=== PATIENT | female | born 1975 | race Caucasian/White ===

== ENCOUNTER 2023-11-15 14:49 | Observation (INO) | payer BC, SELFPAY ==
[2023-11-15 09:25] VITALS: BP 141/95
[2023-11-15 10:38] VITALS: BMI 23.6
--- NOTE | 2023-11-15 10:43 | ED.GENMED ---
History of Present Illness
General
Chief Complaint: Headache
Source: patient and family
Exam Limitations: none
Time Seen by Provider: 11/15/23 10:25
Travel History
Have you had any contact with someone who has COVID-19?: No
Do you have any symptoms of coronavirus? Fever > 100 degrees, chills, cough, shortness of breath, sore throat, loss of taste or smell, muscle aches, or headache?: No
History of Present Illness
History of Present Illness:
47-year-old female photophobia nausea vomiting headache. Retrobulbar. History of cluster headaches. This feels exactly the same. Last episode was 3 years ago. She has had a full workup in the past. No acute neurologic symptoms.
Past History
Past History
ED Past Medical History: Hypercholesterolemia and Other (Migraine)
ED Past Surgical History: Appendectomy
Social History
Tobacco: Smoker
Alcohol: None
Personal:
Living: with family
Family History
Family History: Other (father at 48 with heart attack and mother had heart attack at 52)
Review of Systems
Review of Systems
All Other Systems: Not applicable
Constitutional: Denies fever
Neurological: Denies dizzy, weakness or numbness
Phy Exam
Physical Exam
Physical Exam:
GENERAL: Alert and oriented in no apparent distress
EYE: Orbits normal. Discharge nontender
NECK: Supple, nontender
CARDIAC: Regular rate and rhythm without any obvious murmurs.
LUNGS: Clear breath sounds,normal
ABDOMEN: Soft, without focal tenderness or distention
NEUROLOGICAL: Alert and oriented , speech normal. Cranial nerves II through XII intact.
SKIN: Warm and dry, no rash or lesion, no discoloration, skin intact.
MUSCULOSKELETAL: No edema,no deformity.Good color
PSYCH: Normal and appropriate interaction.
Course
Orders/Labs/Results
Orders:
Orders
11/15/23 10:37
IV Insert/Care/Rem.- Treatment PRN
0.9% Sodium Chloride 1000 ml [Nss] 1,000 ml IV BOLUS
Dexamethasone Sod Phosphate [Decadron] 6 mg IV NOW STA
Diphenhydramine [Benadryl] 25 mg IV NOW STA
Ketorolac [Toradol] 15 mg IV NOW STA
Metoclopramide [Reglan] 10 mg IV NOW STA
11/15/23 10:48
Basic Metabolic Panel Urgent
Complete Blood Count/With Diff Urgent
HCG, Serum Qualitative Screen Urgent
Comment: ADD ON
11/15/23 11:43
Add On- LAB Urgent
Tests Added?: qual bhcg
11/15/23 11:57
Acetaminophen 1000MG/100Ml [Ofirmev] 1,000 mg in 100 ml IV ONCE
Acetaminophen IV Indication:: ED Narcotic Naive Pt-ONCE
HYDROmorphone [Dilaudid] 0.5 mg IV NOW STA
11/15/23 11:58
CT Head W/o Iv Contrast Urgent
Comment:
Reason For Exam: Diffuse severe headache
11/15/23 13:19
HYDROmorphone [Dilaudid] 0.5 mg IV NOW STA
11/15/23 14:10
Admit/Transfer Patient As Directed
Co-Sign Provider:
Level of Care: Observation services
Assign to:: Medical/Surgical
Physician / Group: hosp
Diagnosis: Intractable cluster H/A
Reason for Hospitalization: Intractable cluster headache
11/15/23 14:16
Code Status As Directed
Resuscitation Status: Full Code
11/15/23 14:23
Sumatriptan Succinate [Imitrex] 6 mg SC NOW STA
11/15/23 14:26
Ketorolac [Toradol] 15 mg IV Q6HPRN PRN
11/15/23 Dinner
Clear Liquid
At Your Request: Full Participation
11/15/23 16:06
0.9% Sodium Chloride 1000 ml [Nss] 1,000 ml IV 80 mls/hr
Acetaminophen [Tylenol] 650 mg PO Q4HPRN PRN
Ibuprofen [Motrin] 400 mg PO Q6HPRN PRN
Ondansetron Injectable [Zofran] 4 mg IV Q6HPRN PRN
sumatriptan [Tosymra] 20 mg NASAL DAILYPRN PRN
11/15/23 16:06
NEUROLOGY CONSULT Routine
Consulting Provider: Samantha Woods
Was physician already notified: Yes
Activity As Directed
Activity Level: With Assistance
Neurological Checks As Directed
Frequency: Per unit guidelines
Vital Signs As Directed
Frequency: Per unit guidelines
O2 Therapy [RESP] Routine
Nasal Cannula Liter Flow: 2 LPM
High Flow Nasal Cannula Liter Flow: 12
Titrate/Wean O2 to maintain O2 sat greater than (%): 95
Special Instructions: -High liter flow 12 L over 15 minutes to see if helps headache
DX Deep Vein Thrombosis Video Routine
11/15/23 16:34
HYDROmorphone [Dilaudid] 0.5 mg IV Q4HPRN PRN
11/15/23 22:00
Atorvastatin [Lipitor] 20 mg PO HS
Abnormal Lab Results
11/15/23
10:48
MCH 33.6 H pg
(27.0-31.0)
RDW 11.4 L %
(11.5-14.5)
Absolute Neuts (auto) 6.8 H 10^3/uL
(1.4-6.5)
Neutrophils % 76.2 H %
(42.2-75.2)
Lymphocytes % 20.0 L %
(20.5-51.1)
11/15/23 10:48
11/15/23 10:48
Vital Signs
Initial and Last Documented VS:
Initial Vital Signs
Temp Pulse Resp BP Pulse Ox
98.4 F 96 18 141/95 100
11/15/23 09:25 11/15/23 09:25 11/15/23 09:25 11/15/23 09:25 11/15/23 09:25
Last Documented Vital Signs
Temp Pulse Resp BP Pulse Ox
97.9 F 83 16 111/77 97
11/17/23 07:00 11/17/23 07:00 11/17/23 07:00 11/17/23 07:00 11/17/23 07:00
MDM/Problems Addressed
Differential Diagnosis Includes:
Patient complaining of her classic cluster like headache. She had a full workups including multiple radiologic imaging in the past. She was admitted to [place] years ago for 5 days for the same. No indication for radiologic testing at this time
unless there is a change
*Radiology
Radiology exam reviewed: radiology read reviewed (Negative)
*Pulse Oximetry
Patient hypoxic: no
*Critical Care Note
Total Time (30-74mins, 75-104mins- exclusive of procedures): Not Applicable
Update Note
Update Note:
Patient states her headache is now improved. Will give more pain management and reluctantly give a small dose of Dilaudid. Feels she does need a head CT at this time although feel the yield on a positive head CT is low.
1317... Patient's headache remains unresolved. I do not feel at this time that further slowing her with pain medication would resolve the issue acutely. She will be admitted for further care. Neurologically stable negative head CT do not feel she
warrants further radiologic imaging as she has a history of these type of headaches has been worked up in the past and she is clinically stable
ED Attending Note
-
Portions of this chart may have been created with voice recognition software.� Occasional wrong word or��sound alike� substitutions may have occurred due to the inherent limitations of voice recognition software.
Discharge Plan
Departure
Patient Disposition: Admit
Date of Disposition: 11/15/23
Time of Disposition: 13:19
Presentation/result/management discussed w/ accepting MD/DO: Hospitalist
Discharge Problem:
Intractable headache, History of cluster headaches
Interventions
Interventions:
*Risk Screen - Suicide Last Done: 11/15/23 09:25
*General Assessment Last Done: 11/15/23 09:25
*Neglect/Abuse Screening Last Done: 11/15/23 09:25
ED- Fall Risk Assessment Last Done: 11/15/23 15:20
*ED COVID-19 Vaccine History Last Done: 11/15/23 09:25
*Nursing Disposition Last Done: 11/15/23 15:38
ED- Neurological Assessment Last Done: 11/15/23 10:40
Discharge Date and Time
Discharge Date/Time: 11/15/23 16:00
[2023-11-15] MEDS: NSS 1000 IV ×2 (10:51→16:40)
[2023-11-15] MEDS: TORADOL 15 MG IV (10:53)
[2023-11-15 10:55] LABS: % Basophils 0.4 % (0-2); % Eosinophils 0.3 % (0-6); % Immature Granulocytes 0.2 % (0-0.5); % Monocytes 2.9 % (1.7-9.3); % Neutrophils 76.2 % (42.2-75.2); Absolute Lymphocytes 1.8 10^3/uL (1.2-3.4); Absolute Monocytes 0.3 10^3/uL (0.1-0.6); Absolute Neutrophils 6.8 10^3/uL (1.4-6.5); Hematocrit 41.4 % (37.0-47.0); Hemoglobin 14.4 g/dL (12.0-16.0); Mean Corp Hgb Conc. 34.8 g/dL (33.0-37.0); Mean Corpuscular Hgb 33.6 pg (27.0-31.0); Mean Corpuscular Volume 96.7 fL (81.0-99.0); Mean Platelet Volume 9.5 fL (7.4-10.4); Nucleated Red Blood Cells % 0 %; Platelet Count 268 10^3/uL (130-400); Red Blood Cell Count 4.28 10^6/uL (4.20-5.40); Red Cell Dist. Width 11.4 % (11.5-14.5); White Blood Cell Count 8.9 10^3/uL (4.8-10.8)
[2023-11-15] MEDS: BENADRYL 25 MG IV ×2 (10:55→21:41)
[2023-11-15] MEDS: DECADRON 6 MG IV (10:57)
[2023-11-15] MEDS: REGLAN 10 MG IV ×2 (11:02→21:43)
[2023-11-15 11:11] LABS: Blood Urea Nitrogen 12 mg/dl (7-17); Calcium 9.2 mg/dl (8.4-10.2); Carbon Dioxide 28 mmol/L (22-30); Chloride 104 mmol/L (98-107); Estimated Creatinine Clearance 80 ml/min; Glucose 90 mg/dl (70-99); Potassium 4.4 mmol/L (3.5-5.1); Sodium 135 mmol/L (135-145); eGFR > 60.00
[2023-11-15 11:45] VITALS: BP 121/83
[2023-11-15] MEDS: DILAUDID 0.5 MG IV ×2 (12:21→13:46)
[2023-11-15] MEDS: OFIRMEV 100 IV (12:23)
[2023-11-15 12:25] LABS: HCG, Serum Qualitative Screen Negative
[2023-11-15 13:48] VITALS: BP 125/79
--- NOTE | 2023-11-15 14:27 | HPS.HSE ---
Family Physician
-
Family Physician: Baljinder Zeng, DO
Chief Complaint
-
Intractable headache very typical for her cluster with on the right side
History of Present Illness
47-year-old female with no prior significant medical history other than a known history of cluster headache last which was severe 3 years ago at that time was refractory at this facility but eventually treated at [facility] and required a
5-day course of stay with eventual relief she has been on as needed Imitrex nasal spray since then in the form of Tosymra last which was taken dose yesterday evening. Take it any more frequently than once a day because it knocks her out. She does
not smoke only medication she takes presently is atorvastatin in the last several days she has been taking frequent amounts of ibuprofen and acetaminophen. She received a headache cocktail of Reglan Benadryl Toradol and Decadron here in the ED
without effect and 2 separate dosages of Dilaudid since here without effect. She continues to have a persisting and intractable right-sided headache that is retrobulbar very typical to previous presentation she has had although she states her most
severe headache was 3 years ago she has them intermittently usually treated with NSAIDs with relief. She has not been placed on oxygen in the ED as she had
Medical History
Past Medical History
Past Medical History: Reports Hypercholesterolemia
Additional Past Medical History:
Prior cluster headache
Past Surgical History: Reports None
Social History
Tobacco: Non-smoker
Alcohol: Occasional
Drug: None
Personal:
Living: With Family
Family History
Family History: Not pertinent
Allergies / Home Medications
Allergies reflects when Allergies were last updated in [facility].
Home Medications with original date entered in [facility]
Allergy/Medication List:
Allergies
Allergy/AdvReac Type Severity Reaction Status Date / Time
No Known Allergies Allergy Verified 11/15/23 10:39
Home Medications
acetaminophen 325 mg tablet (Tylenol) 650 mg PO Q4HPRN PRN migraines 11/15/23
atorvastatin 20 mg tablet (Lipitor) 20 mg PO HS 11/15/23
ibuprofen 200 mg tablet (Advil) 400 mg PO Q6HPRN PRN migraines 11/15/23
sumatriptan 10 mg/actuation nasal spray (Tosymra) 20 mg intranasal DAILYPRN PRN migraines 11/15/23
Review of Systems
-
A 12 point ROS was completed and negative except as noted: Yes
Neurological: Reports Headache (Intractable around right eye typical presentation of previous cluster headaches always on right side no visual acuity change)
Psych: Reports No Symptoms
Physical Exam
Vital Signs
Vital Signs
Temp Pulse Resp BP Pulse Ox
98.4 F 98 18 125/79 95
11/15/23 09:25 11/15/23 13:48 11/15/23 13:48 11/15/23 13:48 11/15/23 13:48
Physical Exam
General: Well Developed
HEENT: NormoCephalic
Respiratory: Clear
Cardiac: S1/S2
GI: Soft
Skin: Warm
Neuro: Awake, Alert, Oriented, AO x 3, No Motor Deficits, Nonfocal/grossly intact and Cranial Nerves Intact
Psych: Calm
Laboratory Results
-
11/15/23 10:48
11/15/23 10:48
Data Reviewed
-
Critical Care Time (in minutes): 56
Lab Data: Labs Reviewed by me
Impression/Plan
-
IMPRESSION:
47-year-old female with no prior significant medical history other than a known history of cluster headache last which was severe 3 years ago at that time was refractory at this facility but eventually treated at [facility] and required a
5-day course of stay with eventual relief she has been on as needed Imitrex nasal spray since then in the form of Tosymra last which was taken dose yesterday evening. Take it any more frequently than once a day because it knocks her out. She does
not smoke only medication she takes presently is atorvastatin in the last several days she has been taking frequent amounts of ibuprofen and acetaminophen. She received a headache cocktail of Reglan Benadryl Toradol and Decadron here in the ED
without effect and 2 separate dosages of Dilaudid since here without effect. She continues to have a persisting and intractable right-sided headache that is retrobulbar very typical to previous presentation she has had although she states her most
severe headache was 3 years ago she has them intermittently usually treated with NSAIDs with relief. She has not been placed on oxygen in the ED
Intractable cluster headache by presentation and history
-No response to steroid, Toradol, diphenhydramine,
-Has had response to Imitrex form of nasal spray in the past last taken last evening
-Placing on high flow oxygen per neurology input 12 L/min over 15 minutes/subcu dose of Imitrex/Toradol IV
Neurology consultation will see if high flow oxygen ineffective
-Otherwise Dilaudid as needed
-IV fluids due to poor oral intake
24-hour
DVT prophylaxis with venous pumps
Full CODE STATUS
Spoke to spouse at bedside explained plan of care:
[2023-11-15 14:44] VITALS: BP 111/70
--- NOTE | 2023-11-15 14:46 | EDRN ---
per ER unit secretary, admitting hospitalist Dr Ortiz called and wants this patient to be placed on 12L of oxygen for 15 minutes.
[2023-11-15] MEDS: IMITREX 6 MG SC (15:06)
--- NOTE | 2023-11-15 16:09 | CON.NEURO ---
Consultation
Order
Date of Consultation: 11/15/23
Reason for Consult: headache
CC: headache
HPI: This is a 47-year-old right-handed woman who presented to [facility] on November 15, 2023 with 4 days of headache. According to the patient she developed gradual onset right-sided moderate to severe nonpositional headache with
associated nasal congestion, R ptosis, photophobia, phonophobia, nausea and emesis. She has been using sumatriptan in addition to ibuprofen and Tylenol for headache rescue with no improvement leading to her to seek medical attention. No reports of
head trauma, fever, visual, motor or sensory deficits, recently discontinued medications, excessive caffeine use. Patient does have IUD.
Roma states that her headache improved from 10 to 4/10 in severity after provided treatment in the ER that included dexamethasone 6 mg once, Benadryl 25, hydromorphone 25, ketorolac 15, mental loperamide 10 mg, sumatriptan 6 mg subQ once.
Ms. Odell has history of chronic refractory migraine without aura as well as cluster headache. She reportedly was hospitalized to [facility] with headache cluster several years ago.
She is on Botox for headache prophylaxis and sumatriptan and Tylenol for headache rescue.
ER: MAR: Dexamethasone 6 mg once, Benadryl 25, hydromorphone 25, ketorolac 15, mental loperamide 10 mg, sumatriptan 6 mg subQ once.
ER VS: 125/79, 96�106, afebrile.
PDMP: No recently prescribed medications
Labs: Normal WBCs, sodium, creatinine, glucose,
CT head�unremarkable.
PMH: Refractory migraine without aura, DLP,
PSH: Nasal polyp back appendectomy, abdominoplasty
SH: ; has 2 children; non-smoker, denies excessive alcohol use
FH: Father� in his 40s, had headaches, mother� from diabetic complications
All:NKDA
ROS:Constitutional: Negative. Negative for chills, fever and unexpected weight change.
HENT: Positive for nasal congestion
Eyes: Negative. Negative for photophobia, pain and visual disturbance.
Respiratory: Negative for cough, choking and shortness of breath.
Cardiovascular: Negative for chest pain, palpitations and leg swelling.
Gastrointestinal: Positive for nausea and emesis
Endocrine: Negative. Negative for cold intolerance.
Genitourinary: Negative for dysuria, flank pain and urgency.
Musculoskeletal: Negative for back pain, gait problem, neck pain and neck stiffness.
Skin: Negative for rash.
Allergic/Immunologic: Negative. Negative for immunocompromised state.
Neurological: Positive for headache
Psychiatric/Behavioral: Negative for behavioral problems, confusion and hallucinations.
General: Well developed. In no acute distress.
Cardio: Regular rate and rhythm without murmur. Extremities are without cyanosis or edema.
Neuro:
Mental Status: Alert, oriented to person, place, and date. Normal attention and recall. Good fund of knowledge. Follows complex requests across the midline. Comprehension, naming, and repetition intact. Immediate and delayed recall 3/3.
Cranial Nerves: . Pupils are equally round and reactive to light. EOMs full. Visual moore full to confrontation. No ptosis. No nystagmus. V1-V3 intact to light touch and pinprick bilaterally, symmetric. Face symmetric. Normal hearing AU.
The palate elevated well. SCMs and traps 5/5. Tongue midline. No dysarthria.
Motor: Normal bulk and tone. No pronator or arm drift. Strength 5/5 throughout. No clonus.
Reflexes: 2+ throughout the upper extremities and knees. Plantar responses flexor bilaterally.
Sensory: Normal vibration at the teos
Coordination: No dysmetria or tremor.
Gait: deferred
Assessment and Plan:
I. Trigeminal cephalgia
II. Chronic migraine without aura
III. MOH
-Please check magnesium, ESR, CRP, D-dimer
-Oxygen therapy 12 mL/h for 15 minutes. if not effective�proceed with oral topical lidocaine 40 mg intranasally ipsilaterally to the headache every hour do not exceed 200 mg/day
-IV Toradol 30 mg, Reglan 10 mg, Benadryl 25 mg Q8h PRN for moderate to severe headache.
-I Valproate 500 to 1000 mg over 5 to 10 minutes Q12h
-Continue IV fluids
-Further work up will depend on clinical course.
I personally reviewed all radiology and labs along with past medical records pertinent to current medical problems. Total time spent in patient care is 60 minutes.
Thank you for allowing us to participate in the care of this patient. We will continue to follow. Please do not hesitate to contact us with any questions or concerns.
Subjective/Objective
Subjective Data
Date of Service: November 15, 2023
Objective Data
Vital Signs
Temp Pulse Resp BP Pulse Ox
36.9 C 106 16 111/70 100
11/15/23 09:25 11/15/23 15:36 11/15/23 15:36 11/15/23 14:44 11/15/23 15:36
Lab Results
11/15/23 10:48
11/15/23 10:48
Sodium 135 mmol/L (135-145) 11/15/23 10:48
Potassium 4.4 mmol/L (3.5-5.1) 11/15/23 10:48
BUN 12 mg/dl (7-17) 11/15/23 10:48
Glucose 90 mg/dl (70-99) 11/15/23 10:48
Calcium 9.2 mg/dl (8.4-10.2) 11/15/23 10:48
Patient Allergies
No Known Allergies Allergy (Verified 11/15/23 10:39)
Medications
-
Active Medications
Generic Name Dose Route Start Last Admin
Trade Name Freq PRN Reason Stop Dose Admin
Acetaminophen 650 mg 11/15/23 16:06
Acetaminophen 325 Mg Tablet PO 12/13/23 16:05
Q4HPRN PRN
migraines
Atorvastatin Calcium 20 mg 11/15/23 22:00
Atorvastatin (Lipitor) 20 Mg Tablet PO 12/13/23 21:59
HS WENDY
Hydromorphone HCl 0.5 mg 11/15/23 16:06
Hydromorphone 0.5 Mg/0.5 Ml Syringe IV 11/29/23 16:05
Q4HPRN PRN
severe pain
Sodium Chloride 1,000 mls @ 80 mls/hr 11/15/23 16:06
Nss IV
[id number] WENDY
Ibuprofen 400 mg 11/15/23 16:06
Ibuprofen 200 Mg Tablet PO 12/13/23 16:05
Q6HPRN PRN
migraines
Ketorolac Tromethamine 15 mg 11/15/23 14:26
Ketorolac 15 Mg/Ml Injection IV 11/20/23 14:25
Q6HPRN PRN
PINZON
Non-Formulary Medication 20 mg 11/15/23 16:06
Sumatriptan [Tosymra] NASAL
DAILYPRN PRN
migraines
Ondansetron HCl 4 mg 11/15/23 16:06
Ondansetron 4 Mg/2 Ml Vial IV 12/13/23 16:05
Q6HPRN PRN
nausea and vomiting
Home Medications
Medication Instructions Recorded
acetaminophen 325 mg tablet 650 mg PO Q4HPRN PRN migraines 11/15/23
(Tylenol)
atorvastatin 20 mg tablet (Lipitor) 20 mg PO HS 11/15/23
ibuprofen 200 mg tablet (Advil) 400 mg PO Q6HPRN PRN migraines 11/15/23
sumatriptan 10 mg/actuation nasal 20 mg intranasal DAILYPRN PRN 11/15/23
spray (Tosymra) migraines
Vital Signs and Labs
-
Vital Signs and Labs:
Vital Signs
Temp Pulse Resp BP Pulse Ox
36.5 C 94 16 135/86 98
11/15/23 16:12 11/15/23 16:12 11/15/23 16:12 11/15/23 16:12 11/15/23 16:12
Lab Results
11/15/23 10:48
11/15/23 10:48
Sodium 135 mmol/L (135-145) 11/15/23 10:48
Potassium 4.4 mmol/L (3.5-5.1) 11/15/23 10:48
BUN 12 mg/dl (7-17) 11/15/23 10:48
Glucose 90 mg/dl (70-99) 11/15/23 10:48
Calcium 9.2 mg/dl (8.4-10.2) 11/15/23 10:48
Home Medications
-
Home Medications
acetaminophen 325 mg tablet (Tylenol) 650 mg PO Q4HPRN PRN migraines 11/15/23
atorvastatin 20 mg tablet (Lipitor) 20 mg PO HS 11/15/23
ibuprofen 200 mg tablet (Advil) 400 mg PO Q6HPRN PRN migraines 11/15/23
sumatriptan 10 mg/actuation nasal spray (Tosymra) 20 mg intranasal DAILYPRN PRN migraines 11/15/23
Medications
-
Medications:
Generic Name Dose Route Start Last Admin
Trade Name Freq PRN Reason Stop Dose Admin
Acetaminophen 650 mg 11/15/23 16:06
Acetaminophen 325 Mg Tablet PO 12/13/23 16:05
Q4HPRN PRN
migraines
Atorvastatin Calcium 20 mg 11/15/23 22:00
Atorvastatin (Lipitor) 20 Mg Tablet PO 12/13/23 21:59
HS WENDY
Hydromorphone HCl 0.5 mg 11/15/23 16:06
Hydromorphone 0.5 Mg/0.5 Ml Syringe IV 11/29/23 16:05
Q4HPRN PRN
severe pain
Sodium Chloride 1,000 mls @ 80 mls/hr 11/15/23 16:06
Nss IV
[id number] WENDY
Ibuprofen 400 mg 11/15/23 16:06
Ibuprofen 200 Mg Tablet PO 12/13/23 16:05
Q6HPRN PRN
migraines
Ketorolac Tromethamine 15 mg 11/15/23 14:26
Ketorolac 15 Mg/Ml Injection IV 11/20/23 14:25
Q6HPRN PRN
PINZON
Non-Formulary Medication 20 mg 11/15/23 16:06
Sumatriptan [Tosymra] NASAL
DAILYPRN PRN
migraines
Ondansetron HCl 4 mg 11/15/23 16:06
Ondansetron 4 Mg/2 Ml Vial IV 12/13/23 16:05
Q6HPRN PRN
nausea and vomiting
[2023-11-15 16:11] VITALS: BMI 23.3
[2023-11-15 16:12] VITALS: BP 135/86
[2023-11-15 17:31] LABS: Erythrocyte Sed Rate 8 mm/hour (0-20); Magnesium 2.1 mg/dl (1.6-2.3)
[2023-11-15 17:34] LABS: D-Dimer < 0.27 ug/mlFEU (0.00-0.50)
[2023-11-15 17:36] LABS: C-Reactive Protein < 5.00 mg/L (0.0-10.00)
[2023-11-15 18:08] LABS: TSH Reflex To Free T4 0.26 uIU/ml (0.47-4.68)
[2023-11-15 18:36] LABS: Free T4 1.05 ng/dl (0.78-2.19)
[2023-11-15 19:08] LABS: Amphetamines Negative (Negative); Barbiturates Negative (Negative); Benzodiazepines Negative (Negative); Buprenorphine Negative (Negative); Cocaine Negative (Negative); Marijuana Negative (Negative); Methadone Negative (Negative); Methamphetamines Negative (Negative); Opiates Positive (Negative); Phencyclidine Negative (Negative); Tricyclic Antidepressants Negative (Negative)
[2023-11-15 19:39] LABS: Fentanyl, Urine Negative (Negative)
[2023-11-15] MEDS: LIPITOR 20 MG PO (21:38)
[2023-11-15] MEDS: TORADOL 30 MG IV (21:39)
[2023-11-15 23:11] VITALS: BP 108/68
[2023-11-16] MEDS: NSS 1000 IV ×2 (05:39→18:18)
[2023-11-16] MEDS: BENADRYL 25 MG IV (06:06)
[2023-11-16] MEDS: TORADOL 30 MG IV (06:06)
[2023-11-16] MEDS: REGLAN 10 MG IV (06:07)
[2023-11-16 07:00] VITALS: BP 121/78
[2023-11-16] MEDS: DEPACON 55 MG IV ×2 (07:56→21:05)
--- NOTE | 2023-11-16 08:15 | W.PN.HOSP.TC ---
Today's Communication/Plan
-
Will continue to follow neurology recommendations
Awaiting pharmacy callback on topical lidocaine to be given intranasally
In the meantime we will start on valproate every 12 hours as ordered by neurology
She did have a response to high flow oxygen may have to revert back to that
Assessment / Plan
Assessment / Plan
47-year-old female with no prior significant medical history other than a known history of cluster headache last which was severe 3 years ago at that time was refractory at this facility but eventually treated at [facility] and required a
5-day course of stay with eventual relief she has been on as needed Imitrex nasal spray since then in the form of Tosymra last which was taken dose yesterday evening.� Take it any more frequently than once a day because it knocks her out.� She does
not smoke only medication she takes presently is atorvastatin in the last several days she has been taking frequent amounts of ibuprofen and acetaminophen.� She received a headache cocktail of Reglan Benadryl Toradol and Decadron here in the ED
without effect and 2 separate dosages of Dilaudid since here without effect.� She continues to have a persisting and intractable right-sided headache that is retrobulbar very typical to previous presentation she has had although she states her most
severe headache was 3 years ago she has them intermittently usually treated with NSAIDs with relief.� She has not been placed on oxygen in the ED
Intractable cluster headache by presentation and history
-No response to steroid, Toradol, diphenhydramine,
-Had temporary response with high flow oxygen over 15 minutes
-Has had response to Imitrex form of nasal spray in the past last taken last evening
-Otherwise Dilaudid as needed
-IV fluids due to poor oral intake
-CT of head unremarkable
-Neurology consultation appreciated/initial impression is trigeminal cephalgia
had only temporary response with high flow oxygen/no response with headache cocktail of steroids diphenhydramine and Toradol
-No response with subcu Imitrex
-Neurology ordered valproate starting this morning/also recommendation for topical lidocaine to be given intranasally on ipsilateral side of pain I have called into pharmacy to see we can give this and if available
-
DVT prophylaxis with venous pumps
Full CODE STATUS
Spoke to spouse at bedside explained plan of care:
Anticipated Discharge: 24 - 48 hours
Subjective/Interval History
-
Date of Service: November 16, 2023
Had some initial relief of her headache with high flow oxygen when she was in the ER and had a uneventful night at 6 AM this morning developed 10 out of 10 return of pain to her right side of her face including surrounding her eye no relief with
headache cocktail given earlier this morning
Objective Data
-
Vital Signs:
Vital Signs
Temp Pulse Resp BP Pulse Ox
98.3 F 104 17 108/68 97
11/15/23 23:11 11/15/23 23:11 11/15/23 23:11 11/15/23 23:11 11/15/23 23:11
I&O
11/15/23 11/16/23 11/17/23
06:59 06:59 06:59
Intake Total 160 / 160
Output Total 600 / 600
Balance -440 / -440
Review of Systems
-
History Source: Patient
All other systems: Not reviewed unless documented
Constitutional: Reports Weakness; Denies Fever
EENT: Reports Tearing
Respiratory: Reports No Symptoms
Cardiac: Reports No Symptoms
Abdomen/GI: Reports No Symptoms
Genitourinary: Reports No Symptoms
Physical Exam
-
General: Well Developed
HEENT: Normocephalic
Respiratory: Clear to Auscultation
Cardiac: Regular Rhythm
GI: Soft
Genito-urinary: Costovertebral Angle Tend
Neuro: Awake, Alert, Oriented, AO x 3 and Other (Right-sided retro-orbital headache no palpable tenderness or temporalis)
Data Reviewed
-
Total Time Spent with Patient (in minutes): 56
Labs: Labs Reviewed by me (C-reactive protein was normal TSH was slightly depressed with normal T4/D-dimer is normal/drug screen was positive for opiates)
--- NOTE | 2023-11-16 08:24 | W.PN.NEURO.1 ---
Documented by User: Ella Guzman NP 11/16/23 12:41
Today's Communication / Plan
-
.
Neuro Assessment/Plan
Assessment
This is a 47-year-old right-handed woman who presented to on November 15, 2023 with 4 days of headache.� According to the patient she developed gradual onset right-sided moderate to severe non-positional headache with associated nasal congestion, R
ptosis, photophobia, phonophobia, nausea and emesis.
-CT Head 11/16/23:
I.� Trigeminal cephalgia
II.� Chronic migraine without aura
III. MOH
Plan
-Valproic acid 500mg IV q12hrs scheduled until improvement in headache.
-IV Toradol 30 mg, Reglan 10 mg, Benadryl 25 mg Q8h PRN for moderate to severe headache.
-Oxygen therapy 12 mL/h for 15 minutes. Can repeat high-flow oxygen q30 minutes PRN until some PINZON relief is obtained. May need to consider transfer to IMU as telemetry floors do not have High-flow oxygen capabilities. If high flow oxygen is not
effective and pharmacy has this on formulary�proceed with oral topical viscous lidocaine 40 mg intranasally ipsilaterally to the headache every hour do not exceed 200 mg/day.
-Continue IV fluids.
-MRI brain noncontrast ordered/pending as patient cannot recall if/when she had MRI imaging in the past.
-Promote a quiet, dark environment, rest/sleep, low stimulation.
-Will continue to follow.
-Patient needs to follow-up outpatient with her Neurologist and also consider seeing a headache specialist, Dr. Trell Dill at [facility] is a good option.
Subjective/Objective
Subjective Data
Date of Service: November 16, 2023
No acute events overnight. Patient still reports a severe right frontal headache that ranges from a 7-10/10, photophobia, phonophobia, and intermittent nausea but no vomiting today. She denies any vision changes, dizziness, speech/swallow
difficulty, numbness, weakness, chest pain, palpitations, and shortness of breath.
Objective Data
Vital Signs
Temp Pulse Resp BP Pulse Ox
98.3 F 104 17 108/68 97
11/15/23 23:11 11/15/23 23:11 11/15/23 23:11 11/15/23 23:11 11/15/23 23:11
Lab Results
11/15/23 10:48
11/15/23 10:48
Sodium 135 mmol/L (135-145) 11/15/23 10:48
Potassium 4.4 mmol/L (3.5-5.1) 11/15/23 10:48
BUN 12 mg/dl (7-17) 11/15/23 10:48
Glucose 90 mg/dl (70-99) 11/15/23 10:48
Calcium 9.2 mg/dl (8.4-10.2) 11/15/23 10:48
Ur Buprenorphine Negative (Negative) 11/15/23 18:51
Patient Allergies
No Known Allergies Allergy (Verified 11/15/23 10:39)
Review of Systems
-
History Source: Patient
EENT: Negative Blurry Vision, Decreased Vision or Swallowing Difficulty
Respiratory: Negative Trouble Breathing
Cardiac: Negative Chest Pain or Palpitations
Abdomen/GI: Nausea; Negative Vomiting
Neuro: Headache; Negative Dizzy, Weakness, Numbness, Ataxia or Speech Problem
Physical Exam
-
General: Appears in Distress
Eyes: No Ptosis and PERRLA
HEENT: Normocephalic and Atraumatic
Neck: Full Range of Motion
Respiratory: No Dyspnea
GI: Non-distended
Extremities: No Clubbing, No Cyanosis and No Edema
Extended Neurological Exam
Attention Span & Concentration: Awake, Alert, Interactive and Closes Eyes after Stimulation
Memory: Unremarkable (AAOx3)
Tremor: Hand Tremor Absent and Head Tremor Absent
Involuntary Movement: None
Speech: Quality Unremarkable, Quantity Unremarkable and Rate of Production Unremarkable
Cranial Nerve II: Left Eye: Pupillary Reactivity Unremarkable, Pupillary Size Unremarkable and Visual Marrero Intact
Cranial Nerve II: Right Eye: Pupillary Reactivity Unremarkable, Pupillary Size Unremarkable and Visual Marrero Intact
Cranial Nerves III, IV, : Extraocular Movement: Extraocular Movement Full in all Directions
Cranial Nerve V: Facial Sensation: Intact to Light Touch
Cranial Nerve VII: Facial Symmetry: Normal Facial Symmetry
Cranial Nerve VIII: Hearing: Unremarkable Hearing to Normal Conversational Volume
Cranial Nerves IX, X: Palate Movement: Palate Elevation Symmetric
Cranial Nerve XI: Shoulder Shrug: Unremarkable
Cranial Nerve XII: Tongue Protusion: Midline
Muscle Strength, Overall: Full Throughout
Muscle Bulk & Tone: Bulk Unremarkable and Tone Unremarkable
Pronator Drift: No Drift in Upper Extremities and No Drift in Lower Extremities
Coordination: [id number] Testing Unremarkable
Data Reviewed
-
CT Head: Report Reviewed and Image Reviewed
MRI Head: Ordered and Pending
Labs: Report Reviewed
Reviewed with: Physician and Patient
Medications
-
Active Medications
Generic Name Dose Route Start Last Admin
Trade Name Freq PRN Reason Stop Dose Admin
Acetaminophen 650 mg 11/15/23 16:06
Acetaminophen 325 Mg Tablet PO 12/13/23 16:05
Q4HPRN PRN
migraines
Atorvastatin Calcium 20 mg 11/15/23 22:00 11/15/23 21:38
Atorvastatin (Lipitor) 20 Mg Tablet PO 12/13/23 21:59 20 mg
HS WENDY Administration
Diphenhydramine HCl 25 mg 11/15/23 17:06 11/16/23 06:06
Diphenhydramine 50 Mg/Ml 1 Ml Vial IV 12/13/23 17:05 25 mg
Q4HPRN PRN Administration
headache pain rating 6-10/10
Hydromorphone HCl 0.5 mg 11/15/23 16:34
Hydromorphone 0.5 Mg/0.5 Ml Syringe IV 11/29/23 16:33
Q4HPRN PRN
severe pain
Sodium Chloride 1,000 mls @ 80 mls/hr 11/15/23 16:06 11/16/23 05:39
Nss IV 1,000 mls
.[id number] WENDY Administration
Valproate Sodium 500 mg/ 55 mls @ 110 mls/hr 11/15/23 16:30 11/16/23 07:56
Sodium Chloride IV 12/13/23 16:29 55 mls
Q12H PRN Administration
IF NO IMPROVEMENT IN PINZON
Ketorolac Tromethamine 30 mg 11/15/23 17:03 11/16/23 06:06
Ketorolac 30 Mg/Ml Injection IV 11/20/23 17:02 30 mg
Q8HPRN PRN Administration
headache pain rating 6-10/10
Metoclopramide HCl 10 mg 11/15/23 17:04 11/16/23 06:07
Metoclopramide 10 Mg/2 Ml Vial IV 12/13/23 17:03 10 mg
Q8HPRN PRN Administration
headache pain rating 6-10/10
Ondansetron HCl 4 mg 11/15/23 16:06
Ondansetron 4 Mg/2 Ml Vial IV 12/13/23 16:05
Q6HPRN PRN
nausea and vomiting
Home Medications
Medication Instructions Recorded
acetaminophen 325 mg tablet 650 mg PO Q4HPRN PRN migraines 11/15/23
(Tylenol)
atorvastatin 20 mg tablet (Lipitor) 20 mg PO HS High Cholesterol 11/15/23
ibuprofen 200 mg tablet (Advil) 400 mg PO Q6HPRN PRN migraines 11/15/23
sumatriptan 10 mg/actuation nasal 20 mg intranasal DAILYPRN PRN 11/15/23
spray (Tosymra) migraines

Documented by User: Samantha Woods MD 11/16/23 12:45
Neuro Assessment/Plan
Assessment
This is a 47-year-old right-handed woman who presented to on November 15, 2023 with 4 days of headache.� According to the patient she developed gradual onset right-sided moderate to severe non-positional headache with associated nasal congestion, R
ptosis, photophobia, phonophobia, nausea and emesis.
-CT Head 11/16/23:
I.� Trigeminal autonomic cephalgia. Cluster headache vs paroxysmal hemicrania
II.� Chronic migraine without aura
III. MOH
Plan
-Valproic acid 500mg IV q12hrs scheduled until improvement in headache.
-IV Toradol 30 mg, Reglan 10 mg, Benadryl 25 mg Q8h PRN for moderate to severe headache.
-Oxygen therapy 12 mL/h for 15 minutes. Can repeat high-flow oxygen q30 minutes PRN until some PINZON relief is obtained. May need to consider transfer to IMU as telemetry floors do not have High-flow oxygen capabilities. If high flow oxygen is not
effective and pharmacy has this on formulary�proceed with oral topical viscous lidocaine 40 mg intranasally ipsilaterally to the headache every hour do not exceed 200 mg/day.
-Continue IV fluids.
-MRI brain noncontrast ordered/pending as patient cannot recall if/when she had MRI imaging in the past.
-Promote a quiet, dark environment, rest/sleep, low stimulation.
-Patient needs to follow-up outpatient with her Neurologist and also consider seeing a headache specialist, Dr. Trell Dill at [facility] is a good option.
--- NOTE | 2023-11-16 12:04 | CM ---
Spoke with pt at bedside
Pt reports she lives with her and son in a town home
Independent, cooks meals, cares for son
Denies DME
Denies past HH/SNF
Has ride at d/c
PCP - Dr Zeng
Pharm - [facility] on [address]
Plan - anticipate home to previous setting
[2023-11-16 15:00] VITALS: BP 120/81
[2023-11-16] MEDS: INDOCIN 25 MG PO (21:06)
[2023-11-16] MEDS: LIPITOR 20 MG PO (21:06)
[2023-11-16 23:00] VITALS: BP 124/74
[2023-11-17 07:00] VITALS: BP 111/77
--- NOTE | 2023-11-17 08:13 | W.PN.HOSP.TC ---
Today's Communication/Plan
-
Will await neurology input as to what if any maintenance therapy(Depakote would be indicated) and also the suggestion by neurology to follow-up with the head ache specialist Dr. Trell Dill at [facility] would be a good option also.
Also requesting prescription for Tosymra
Presumptive discharge will be later today after seen by neurology
-
Assessment / Plan
Assessment / Plan
47-year-old female with no prior significant medical history other than a known history of cluster headache last which was severe 3 years ago at that time was refractory at this facility but eventually treated at [facility] and required a
5-day course of stay with eventual relief she has been on as needed Imitrex nasal spray since then in the form of Tosymra last which was taken dose yesterday evening.� Take it any more frequently than once a day because it knocks her out.� She does
not smoke only medication she takes presently is atorvastatin in the last several days she has been taking frequent amounts of ibuprofen and acetaminophen.� She received a headache cocktail of Reglan Benadryl Toradol and Decadron here in the ED
without effect and 2 separate dosages of Dilaudid since here without effect.� She continues to have a persisting and intractable right-sided headache that is retrobulbar very typical to previous presentation she has had although she states her most
severe headache was 3 years ago she has them intermittently usually treated with NSAIDs with relief.� She has not been placed on oxygen in the ED
Intractable cluster headache by presentation and history
-No response to steroid, Toradol, diphenhydramine,
-Had temporary response with high flow oxygen over 15 minutes
-Has had response to Imitrex form of nasal spray in the past last taken last evening
-Otherwise Dilaudid as needed
-IV fluids due to poor oral intake
-CT of head unremarkable
-Neurology consultation appreciated/initial impression is trigeminal cephalgia
had only temporary response with high flow oxygen/no response with headache cocktail of steroids diphenhydramine and Toradol
-No response with subcu Imitrex
-Currently seems to have a very good response with the initiation of valproate IV yesterday
-MRI of the brain ordered by neurology was completely normal
-Will await neurology input as to what if any maintenance therapy(Depakote would be indicated) and also the suggestion by neurology to follow-up with the head ache specialist Dr. Trell Dill at [facility] would be a good option also.
-
DVT prophylaxis with venous pumps
Full CODE STATUS
Spoke to spouse at bedside explained plan of care:
Anticipated Discharge: Today
Subjective/Interval History
-
Date of Service: November 17, 2023
Her headache is almost gone since about midday yesterday and seem to be coincident with the starting of valproate IV and she remains headache free this morning she ate well throughout the day and having breakfast this morning.
Objective Data
-
Vital Signs:
Vital Signs
Temp Pulse Resp BP Pulse Ox
97.9 F 83 16 111/77 97
11/17/23 07:00 11/17/23 07:00 11/17/23 07:00 11/17/23 07:00 11/17/23 07:00
I&O
11/16/23 11/17/23 11/18/23
06:59 06:59 06:59
Intake Total 160 / 160 1035 / 1035
Output Total 600 / 600
Balance -440 / -440 1035 / 1035
Review of Systems
-
All other systems: Not reviewed unless documented
Constitutional: Reports No Symptoms; Denies Fever
EENT: Denies Tearing or Eye Pain
Respiratory: Reports No Symptoms
Cardiac: Reports No Symptoms
Physical Exam
-
General: Well Developed
HEENT: Normocephalic and Atraumatic
Respiratory: Clear to Auscultation
GI: Soft
Musculoskeletal: No Clubbing and No Edema
Skin: IV Access / Catheter Site
Neuro: Awake, Oriented and Central Nerve's Intact
Psych: Calm
Data Reviewed
-
Total Time Spent with Patient (in minutes): 56
MRI: Report Reviewed by me (MRI of the brain was within normal limits)
Labs: Labs Reviewed by me
[2023-11-17] MEDS: DEPACON 55 MG IV (08:35)
[2023-11-17] MEDS: PROTONIX 40 MG PO (08:36)
[2023-11-17] MEDS: INDOCIN 25 MG PO (08:36)
--- NOTE | 2023-11-17 11:04 | W.DS.TRANS ---
DC Summary - [employer]
-
Discharge Instructions:
Discharge Diagnosis/Procedures Intractable headache
Migraine versus cluster headache
Diet As tolerated
Activity As tolerated
Driving Restrictions As prior to admission
Instructions:
Stand-Alone Forms:
Changes to Home Medications: Yes
Discharge Medications:
DC Medications w/original date entered in [email or web address]
acetaminophen 325 mg tablet (Tylenol) 650 mg PO Q4HPRN PRN migraines 11/15/23
atorvastatin 20 mg tablet (Lipitor) 20 mg PO HS High Cholesterol 11/15/23
ibuprofen 200 mg tablet (Advil) 400 mg PO Q6HPRN PRN migraines 11/15/23
rimegepant 75 mg disintegrating tablet (Nurtec ODT) 75 mg PO ONCE PRN migraine headache #7 tabs 11/17/23
sumatriptan 10 mg/actuation nasal spray (Tosymra) 20 mg intranasal Q2H PRN migraine headache #6 ea 11/17/23
verapamil 120 mg tablet,extended release (Calan SR) 120 mg PO DAILY #30 tabs 11/17/23
Home Medication Changes
rimegepant 75 mg disintegrating tablet (Nurtec ODT) 75 mg PO ONCE PRN migraine headache #7 tabs 11/17/23
verapamil 120 mg tablet,extended release (Calan SR) 120 mg PO DAILY #30 tabs 11/17/23
Pending Results: No
--- NOTE | 2023-11-17 12:05 | W.PN.NEURO.1 ---
Today's Communication / Plan
-
.
Neuro Assessment/Plan
Assessment
This is a 47-year-old right-handed woman who presented to on November 15, 2023 with 4 days of headache.� According to the patient she developed gradual onset right-sided moderate to severe non-positional headache with associated nasal congestion, R
ptosis, photophobia, phonophobia, nausea and emesis.
-CT Head 11/16/23:
I.� Trigeminal autonomic cephalgia. Cluster headache vs paroxysmal hemicrania
II.� Chronic migraine without aura
III. MOH
Plan
-Valproic acid 500mg IV q12hrs scheduled until improvement in headache.
-IV Toradol 30 mg, Reglan 10 mg, Benadryl 25 mg Q8h PRN for moderate to severe headache.
-Oxygen therapy 12 mL/h for 15 minutes. Can repeat high-flow oxygen q30 minutes PRN until some PINZON relief is obtained. May need to consider transfer to IMU as telemetry floors do not have High-flow oxygen capabilities. If high flow oxygen is not
effective and pharmacy has this on formulary�proceed with oral topical viscous lidocaine 40 mg intranasally ipsilaterally to the headache every hour do not exceed 200 mg/day.
-Continue IV fluids.
-MRI brain noncontrast ordered/pending as patient cannot recall if/when she had MRI imaging in the past.
-Promote a quiet, dark environment, rest/sleep, low stimulation.
-Patient needs to follow-up outpatient with her Neurologist and also consider seeing a headache specialist, Dr. Trell Dill at [facility] is a good option.
Subjective/Objective
Subjective Data
Date of Service: November 17, 2023
Ms. Odell states that she woke up with right hemic cephalic 3 out of 10 headache lasting for several minutes. She has been headache free since. No reports of change in vision, motor or sensory deficits
Brain MRI�normal.
ESR, CRP, free T4 D-dimers�normal.
PMH: Refractory migraine without aura, cluster headache, DLP,
PSH: Nasal polypectomy; appendectomy, abdominoplasty
SH: ; has 2 children; non-smoker, denied excessive alcohol use
FH: Father� in his 40s, had headaches, mother� from diabetic complications
All: NKDA
ROS: Constitutional: Negative. Negative for chills, fever and unexpected weight change.
HENT: Positive for nasal congestion
Eyes: Negative. Negative for photophobia, pain and visual disturbance.
Respiratory: Negative for cough, choking and shortness of breath.
Cardiovascular: Negative for chest pain, palpitations and leg swelling.
Neurological: Positive for headache
�
�
General: Well developed. In no acute distress.
Cardio: Regular rate and rhythm without murmur. Extremities are without cyanosis or edema.
Neuro:
Mental Status: Alert, oriented to person, place, and date.� Normal attention and recall.� Good fund of knowledge. Follows complex requests across the midline.� Comprehension, naming, and repetition intact.� Immediate and delayed recall 3/3.
Cranial Nerves: . Pupils are equally round and reactive to light.� EOMs full.� Visual moore full to confrontation.� No ptosis.� No nystagmus.� V1-V3 intact to light touch and pinprick bilaterally, symmetric.� Face symmetric.� Normal hearing AU.�
The palate elevated well.� SCMs and traps 5/5.� Tongue midline.� No dysarthria.
Motor:� � � � Normal bulk and tone.� No pronator or arm drift.� Strength 5/5 throughout. No clonus.
Reflexes: � � � � � � 2+ throughout the upper extremities and knees.� Plantar responses flexor bilaterally.
Sensory: � � Normal vibration at the teos
Coordination: No dysmetria or tremor.�
Gait: � � � � � deferred
Assessment and Plan:
I., Cluster headache.
II.� Chronic migraine without aura
III. MOH
�
-Headache diary
-Oxygen therapy 12 mL/h for 15 minutes. if not effective�proceed with oral topical lidocaine 40 mg intranasally ipsilaterally to the headache every hour do not exceed 200 mg/day
-Intranasal sumatriptan 20 mg as needed for headache rescue
-Nurtec 75 milligrams as needed for headache rescue at the onset of typical migraine headache
-Start verapamil 40 mg 3 times daily with titration as tolerated. If ineffective-consider Emgality 300 mg subQ Q month for headache prophylaxis
-Outpatient neurology follow-up in 1 week to
I personally reviewed all radiology and labs along with past medical records pertinent to current medical problems. Total time spent in patient care is 35 minutes.
�
Thank you for allowing us to participate in the care of this patient. Please do not hesitate to contact us with any questions or concerns.
Objective Data
Vital Signs
Temp Pulse Resp BP Pulse Ox
36.6 C 83 16 111/77 97
11/17/23 07:00 11/17/23 07:00 11/17/23 07:00 11/17/23 07:00 11/17/23 07:00
Lab Results
11/15/23 10:48
11/15/23 10:48
Sodium 135 mmol/L (135-145) 11/15/23 10:48
Potassium 4.4 mmol/L (3.5-5.1) 11/15/23 10:48
BUN 12 mg/dl (7-17) 11/15/23 10:48
Glucose 90 mg/dl (70-99) 11/15/23 10:48
Calcium 9.2 mg/dl (8.4-10.2) 11/15/23 10:48
Ur Buprenorphine Negative (Negative) 11/15/23 18:51
Patient Allergies
No Known Allergies Allergy (Verified 11/15/23 10:39)
--- NOTE | 2023-11-17 13:38 | W.DCSUMMARY ---
Discharge Summary
Discharge Data
Date of Admission: 11/15/23
Date of Discharge: 11/17/23
-
Pending Results: No
Hospital Course
47-year-old right-handed woman who presented to on November 15, 2023 with 4 days of headache.� According to the patient she developed gradual onset right-sided moderate to severe non-positional headache with associated nasal congestion, R ptosis,
photophobia, phonophobia, nausea and emesis. Last occurrence of this was some 3 years ago at which time she eventually ended up at [facility] there for 5 days with eventual resolution of her symptoms is unclear what the treatment course
there was in that 3-year span the patient's had fairly frequent headaches but usually self-limited and with the usage of NSAID therapy. On presentation she describes her headache as cluster headache'.
Initial attempt with a headache cocktail then entailed the dexamethasone diphenhydramine and Toradol in the ED did not alleviate her discomfort along with a single dose of Dilaudid/there is no mention in the ED evaluation of the patient being given
high flow oxygen after admission the patient was placed on high flow oxygen for 15 minutes at 12 L and had some significant relief but was temporized and she was admitted to the floor and neurologic consultation was undertaken a subcu injection of
sumatriptan had no result it is apparent also the patient has been using intranasal sumatriptan but felt by their online research from the patient's spouse that could only be given once every 24 hours. Further recurrent headache cocktails were not
resulted in any relief of her symptoms with continued cluster type presentation to in the retrobulbar artery presentation around her right eye and right side the patient had eventual significant relief of her discomfort after the initiation of a
valproate IV every 12 hours ordered by neurology other considerations that were ordered but not undertaken after the police force intranasal viscous lidocaine to the ipsilateral side nares. With eventual relief for status migrainosus/cluster
headache/neurology is now advising headache prophylaxis with verapamil she will be given a sustained-release form of 120 mg daily she was given a prescription for her prior dosing ofTosymra(10 mg) this can be taken up to 4 times a day in the morning
along with given a prescription for Nurtec 75 mg to be taken as needed no more than once a day. She was instructed to follow-up with a headache specialist at [facility] Dr. Dill at the suggestion of the neurology service will see the
patient in follow-up in 1 week he was also instructed on a headache diary to be completed ongoing
Discharge Plan
-
Patient Disposition: Home (Routine Discharge)
Discharge Diagnosis/Procedures: Intractable headache
Migraine versus cluster headache
Diet: As tolerated
Activity: As tolerated
Driving Restrictions: As prior to admission
Referrals:
Baljinder Zeng, [Family Provider] - in less than 1 week (Should seek follow-up for headache history with Dr. Dill at [facility] headache specialist)
Prescriptions:
New
Tosymra 10 mg/actuation spray,non-aerosol
20 mg intranasal Q2H PRN (Reason: migraine headache) Qty: 6 0RF
Nurtec ODT 75 mg tablet,disintegrating
75 mg PO ONCE MDD 1 PRN (Reason: migraine headache) Qty: 7 0RF
verapamil [Calan SR] 120 mg tablet extended release
120 mg PO DAILY Qty: 30 0RF
Continued
acetaminophen [Tylenol] 325 mg Tablet
650 mg PO Q4HPRN PRN (Reason: migraines)
atorvastatin [Lipitor] 20 mg Tablet
20 mg PO HS
ibuprofen [Advil] 200 mg Tablet
400 mg PO Q6HPRN PRN (Reason: migraines)
Discontinued
Tosymra 10 mg/actuation [place],Non-Aerosol
20 mg INTRANASAL DAILYPRN PRN (Reason: migraines)
Discharge Orders:
Discharge Patient (As Directed); Ordered 11/17/23
Ordered By: Cleve Ortiz
== END 2023-11-17 15:31 | disposition home or self-care (01) ==
LOC: 3 WEST ACU 14:49
PROVIDERS: ADMITTING PHYSICIAN Internal Medicine; CONSULT PHYSICIAN Psychiatry & Neurology Neurology; EMERGENCY PHYSICIAN Emergency Medicine; FAMILY PHYSICIAN Internal Medicine
DX: G44.001 Cluster headache syndrome, unspecified, intractable (principal); E78.00 Pure hypercholesterolemia, unspecified; F17.200 Nicotine dependence, unspecified, uncomplicated; R09.81 Nasal congestion; H53.149 Visual discomfort, unspecified; R11.2 Nausea with vomiting, unspecified; H93.2 Other abnormal auditory perceptions; Z82.49 Family history of ischemic heart disease and other diseases of the circulatory system
CPT/HCPCS: 70450; 70551; 80048; 80306; 80307; 83735; 84439; 84443; 84703; 85025; 85379; 85652; 86140; 96361; 96374; 96375; 99285; G0378